=== PATIENT | female | born 1970 | race Caucasian/White ===

== ENCOUNTER 2016-08-18 07:55 | Outpatient (CLI) | payer MEDICAID ==
[2016-08-18 10:59] LABS: BILIRUBIN,URINE NEGATIVE (NEGATIVE)
[2016-08-18 11:15] LABS: WBC,URINE 0-3 /HPF (0-5)
[2016-08-18 11:18] LABS: ALBUMIN/GLOBULIN RATIO 1.9 (1.0-2.2); BILIRUBIN,TOTAL 0.4 mg/dL (0.2-1.0); BUN - BLOOD UREA NITROGEN 14 mg/dL (6-20); CALCIUM 9.2 mg/dL (8.5-10.3); CARBON DIOXIDE - CO2 28 mmol/L (21-32); CHLORIDE 103 mmol/L (101-111); CHOL/HDL RATIO 3.4 (<4.4); CHOLESTEROL 220 mg/dL; CREATININE 0.7 mg/dL (0.4-1.0); GFR - MDRD 89 (>89); GLUCOSE 100 mg/dL (70-100); HDL CHOLESTEROL 64 mg/dL; LDL/HDL RATIO 2.2 (<4.4); SODIUM 137 mmol/L (135-145); TOTAL PROTEIN 6.6 g/dL (6.7-8.2); TRIGLYCERIDES 81 mg/dL; VLDL CHOLESTEROL 16 mg/dL
== END 2016-08-18 07:56 | disposition home or self-care (01) ==
LOC: LAB.F 07:55
PROVIDERS: ATTEND Nurse Practitioner Family
DX: R19.5 Other fecal abnormalities (principal); B18.2 Chronic viral hepatitis C; Z13.220 Encounter for screening for lipoid disorders; Z13.29 Encounter for screening for other suspected endocrine disorder
CPT/HCPCS: 36415; 80053; 80061; 81001; 81003; 84443; 87086

== ENCOUNTER 2016-10-16 10:24 | Emergency (ER) | payer MEDICAID ==
[2016-10-16 10:34] VITALS: BP 123/81
[2016-10-16] MEDS ORDERED: DEXAMETHASONE 10 MG/ML VIAL PO STA (11:09)
--- NOTE | 2016-10-16 11:12 | ED Physician Documentation ---
PD HPI HEENT - Stated complaint Stated Complaint: POST BIOPSY MOUTH PX - Chief complaint Chief Complaint: General - History obtained from History obtained from: Patient - History of Present Illness Timing - onset: Yesterday Timing - duration: Days (1) Timing - details: Gradual onset, Still present Location: Tooth, Mouth Improves: Nothing Associated symptoms: Facial swelling. No: Fever, Congestion, Cough Similar symptoms before: Has not had sx before Recently seen: Surgery - Additional information Additional information: 46-year-old previously well female had a procedure done yesterday at the [facility] office in [place] and she had a bone shaving and biopsy done on her left Maxillary area. She has a significant amount of pain , swelling and drainage from the area and she is concerned about infection. She has not been able to get a hold of the surgeon. She has pain much worse than she expected and she usually does well with pain. Review of Systems Constitutional: denies: Fever Nose: denies: Congestion Throat: denies: Sore throat Cardiac: denies: Chest pain / pressure Respiratory: denies: Cough GI: denies: Abdominal Pain, Nausea, Vomiting : denies: Dysuria, Frequency PD PAST MEDICAL HISTORY - Present Medications Home Medications: Ambulatory Orders Medication Instructions Recorded Confirmed Amoxicillin 500 mg PO TID #21 capsule 10/16/16 Tramadol HCl 50 - 100 mg PO Q6HR PRN #20 tablet 10/16/16 - Allergies Allergies/Adverse Reactions: Allergies Allergy/AdvReac Type Severity Reaction Status Date / Time erythromycin base Allergy Rash Verified 10/16/16 10:31 acetaminophen [From Vicodin] AdvReac Rash Verified 10/16/16 10:32 hydrocodone bitartrate * AdvReac Rash Verified 10/16/16 10:32 [From Vicodin] PD ED PE NORMAL - Vitals Vital signs reviewed: Yes - General General: Alert and oriented X 3, Well developed/nourished, Other (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 ) - HEENT HEENT: Atraumatic, PERRL, EOMI, Pharynx benign, Other (There is a fresh surgical site on the left maxilla above #13 and #14 and the area is tender and swollen. ) - Neck Neck: Supple, no meningeal sign, No bony TTP - Cardiac Cardiac: RRR, No murmur - Respiratory Respiratory: No respiratory distress, Clear bilaterally - Derm Derm: Normal color, Warm and dry, No rash - Extremities Extremities: No deformity, No edema - Neuro Neuro: No motor deficit, No sensory deficit - Psych Psych: Normal mood PD ED PE EXPANDED - HEENT HEENT Visual: 1 - abscess, swelling, tenderness Results - Vitals Vitals: Vital Signs - 24 hr 10/16/16 10/16/16 10:28 10:33 Temperature 36.5 C Heart Rate 81 Respiratory 12 Rate Blood Pressure 123/81 H O2 Saturation 100 Oxygen O2 Source Room air PD MEDICAL DECISION MAKING - ED course Complexity details: considered differential, d/w patient ED course: 46-year-old female with pain postoperatively in an area of her maxilla on the left side has some drainage from the area and appears to be in a lot of pain. She is administered dexamethasone 10 mg orally for reduction in general inflammation and will place her on some amoxicillin and she has had issue with Vicodin previously and oxycodone and so we will try her on some tramadol for the pain she is given 1 dose here in the emergency department. Departure - Departure Disposition: 01 Home, Self Care Clinical Impression: Pain, dental Condition: Stable Instructions: ED Abscess Tooth Follow-Up: Letitia Dsouza ARNP [Primary Care Provider] - Prescriptions: Tramadol HCl 50 - 100 mg PO Q6HR PRN #20 tablet PRN Reason: Pain Amoxicillin 500 mg PO TID #21 capsule
[2016-10-16] MEDS ORDERED: CHERRY SYRUP 10 ML UDC PO ONE (11:13)
[2016-10-16] MEDS ORDERED: DEXAMETHASONE 10 MG/ML VIAL ONE (11:13)
[2016-10-16] MEDS ORDERED: traMADol 50 MG TABLET PO STA (11:16)
[2016-10-16] MEDS ORDERED: traMADol 50 MG TABLET PO ONE (11:17)
== END 2016-10-16 11:20 | disposition home or self-care (01) ==
LOC: ED 10:24
DX: G89.18 Other acute postprocedural pain (principal); K08.89 Other specified disorders of teeth and supporting structures
CPT/HCPCS: 99283; A9270

== ENCOUNTER 2017-01-05 13:52 | Outpatient (CLI) | payer MEDICAID ==
--- NOTE | 2017-01-05 17:19 | XRAY Report ---
THREE VIEW RIGHT SHOULDER: 01/05/2017 CLINICAL INDICATION: Pain. FINDINGS: Internal and external rotational views and an axillary Y view of the right shoulder demons trate no evidence of fracture or dislocation. The joint spaces are preserved. No radiopaque foreign b eddy is seen in the soft tissues. IMPRESSION: NORMAL RIGHT SHOULDER. JOB #: [id number] EXT JOB #:[id number]
== END 2017-01-05 13:53 | disposition home or self-care (01) ==
LOC: DI.S 13:52
PROVIDERS: ATTEND Nurse Practitioner Family
DX: M25.511 Pain in right shoulder (principal)